=== PATIENT | male | born 1930 | race Caucasian/White ===

== ENCOUNTER 2018-11-27 18:44 | Emergency (ER) | payer OTHER ==
--- NOTE | 2018-11-27 18:53 | EDPHY ---
H & P Time Seen by Provider: 11/27/18 18:53 HPI/ROS: CHIEF COMPLAINT: "I feel crappy" HISTORY OF PRESENT ILLNESS: The patient is an 88 y/o male with dementia arriving via EMS with his daughter for evaluation of malaise onset sometime today. His family saw him yesterday and report he was acting at baseline. Per staff members to daughter, he ate breakfast and lunch normally today. This evening he seemed lethargic and said he felt badly so the staff called for transport to the ED. He says he feels "crappy," but denies pain anywhere or any specific complaints. No report of cough, headache, chest pain, abdominal pain, urinary issues, sore throat. Incontinent at baseline. Flu vaccination is up-to- date. No reported trauma. REVIEW OF SYSTEMS: Limited by patient's dementia. Past medical history: 1. Dementia 2. Peripheral neuropathy 3. Hypertension 4. Syncope 5. Chronic SVT 6. BPH 7. Hearing loss 8. GERD 9. 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 Bilateral knee replacements 2. Second toe on the right amputated 3. Pacemaker Family history: Noncontributory Social history: Daughter at bedside. Lives at [facility] living since April 2018. 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 DNR status - comfort care. General Appearance: Alert. Vital signs reviewed. BP 173/117. Eyes: Pupils equal and round, no conjunctival injection, no discharge. Anicteric. ENT, Mouth: TMs clear bilaterally, some cerumen in left auditory canal. Mucous membranes are moist, no oropharyngeal erythema or edema. Neck: No lymphadenopathy, supple. Respiratory: Lungs are clear to auscultation; no wheezes, rales, or rhonchi. Cardiovascular: Regular rate and rhythm; no murmur, rub, or gallop. Gastrointestinal: Abdomen is soft and nontender, no masses or organomegaly. Skin: Warm and dry, no rashes on exposed skin, normal color. Back: Chapped skin around buttocks. Brown stool in depends. Nontender to palpation over the thoracolumbar spine. No CVAT. Extremities: No lower extremity edema, no calf tenderness or swelling. Superficial scratch below right knee. Cracked peeling skin on plantar aspect of right foot. On plantar aspect of left foot there is a tender swallow depression surrounded by mild erythema, not warm. Neurological: Alert and oriented at baseline. Moving all four extremities easily and equally. Psychiatric: Normal affect. Constitutional: Initial Vital Signs Temperature (C) 36.9 C 11/27/18 18:52 Heart Rate 88 11/27/18 18:52 Respiratory Rate 18 11/27/18 18:52 Blood Pressure 173/117 H 11/27/18 18:52 O2 Sat (%) 96 11/27/18 18:52 O2 Delivery Mode Room Air Allergies/Adverse Reactions: Sulfa (Sulfonamide Antibiotics) Allergy (Verified 11/27/18 18:49) Home Medications: Medication Instructions Recorded Aquaphor 11/27/18 Benazepril HCl 11/27/18 Donepezil HCl 11/27/18 Dorzolamide 2% 11/27/18 Finasteride 11/27/18 IPRATROPIUM BROMIDE 11/27/18 Lumigan 0.01% (*) 11/27/18 Metoprolol Succinate 11/27/18 Ranitidine HCl 11/27/18 Tab A Inna 11/27/18 Tamsulosin HCl 11/27/18 Medical Decision Making - Diagnostics Imaging: I viewed and interpreted images myself ED Course/Re-evaluation: This is an 88 y/o male with advanced dementia who presents for evaluation after complaining of feeling "crappy" at his assisted living facility today. He does not appear systemically ill on exam. He has some skin changes to his buttocks and bottom of both feet. Plan for IV, labs, UA, EKG, chest x-ray. The 12 lead EKG was interpreted by myself. AV paced rhythm rate 63. See hard copy and/or "tracemaster" electronic copy for interpretation. Chest x-ray: [facility] Reassessed patient and discussed findings with him and his daughter. Labs including UA are unremarkable. I've found no clear etiology for his report of feeling crappy. No apparent infection (pneumonia,UTI, cellulitis). Single troponin is negative. He has a paced rhythm. ACS unlikely. No evidence of trauma. BP initially elevated at 173/117, but improved at DC (133/88). He does not have any acute complaints during reassessment. Recommend discharge home and follow up with his PCP as needed. Return precautions discussed. - Data Points Laboratory Results: Laboratory Results 11/27/18 19:12 11/27/18 19:12 Point of Care Test Results: Chemistry 11/27/18 19:29 POC Troponin I 0.00 ng/mL ng/mL (0.00-0.08) Departure - Departure Disposition: Home, Routine, Self-Care Clinical Impression: Malaise Condition: Good Instructions: Fatigue (ED) Additional Instructions: Your blood pressure upon arrival in the ED was 173/117. At discharge it was 133/ 88. Please have facility staff check your blood pressure twice daily over the next several days. Bring these measurements to your next doctor's appointment. Follow up with your primary care provider. Return for worsening of condition. Referrals: Chantell Roy MD [[facility] Primary Care Provider] - As per Instructions Report Scribed for: Shabana Ricks Report Scribed by: Savanna Montoya Date of Report: 11/27/18 Time of Report: 19:22 Physician Review and Approval Statement: 11/27/18 18:53 Portions of this note were transcribed by the medical writer. I, Dr. Shabana Ricsk, personally performed the history, physical exam, and medical decision- making; and confirmed the accuracy of the information in the transcribed note.
[2018-11-27] MEDS ORDERED: ACETAMINOPHEN 325 MG TAB ONE (19:42)
[2018-11-27 19:43] LABS: PLATELET COUNT 238 10^3/uL (150-400)
[2018-11-27 20:41] VITALS: BP 133/88
--- NOTE | 2018-11-27 21:00 | CPEKG ---
Test Reason : OPEN Blood Pressure : / mmHG Vent. Rate : 063 BPM Atrial Rate : 062 BPM P-R Int : 200 ms QRS Dur : 088 ms QT Int : 431 ms P-R-T Axes : 073 054 051 degrees QTc Int : 442 ms Atrial-paced complexes Confirmed by Christiana Washington ([id number]) on 11/27/2018 8:59:37 PM Referred By: CHRISTIANA WASHINGTON Confirmed By:Christiana Washington
== END 2018-11-27 21:19 | disposition home or self-care (01) ==
LOC: EDUNIT#
DX: R53.81 Other malaise (principal); F03.90 Unspecified dementia, unspecified severity, without behavioral disturbance, psychotic disturbance, mood disturbance, and anxiety; I10 Essential (primary) hypertension; G62.9 Polyneuropathy, unspecified; N40.0 Benign prostatic hyperplasia without lower urinary tract symptoms; K21.9 Gastro-esophageal reflux disease without esophagitis; Z95.0 Presence of cardiac pacemaker
CPT/HCPCS: 84484-ER

== ENCOUNTER 2018-12-16 04:13 | Emergency (ER) | payer OTHER ==
[2018-12-16 04:41] LABS: PLATELET COUNT 236 10^3/uL (150-400)
--- NOTE | 2018-12-16 05:09 | EDPHY ---
H & P Stated Complaint: found on floor by nursing staff Time Seen by Provider: 12/16/18 04:26 HPI/ROS: Chief Complaint: Fall HPI: 88-year-old male resident of [facility] was found on the floor by staff. Patient states that he lost his balance while going to the bathroom. He was complaining of some general malaise and weakness enough to be brought to the hospital. He does have a DNR and the [facility] form indicating comfort measures only. They contacted family and they authorized his transport. He was recently diagnosed with a gastroenteritis but has since recovered. No headache. No nausea or vomiting. He did not hit his head. No loss of consciousness. He is currently without complaints. ROS: 10 systems were reviewed and were negative except those elements noted in the HPI.\ Social History: No smoking, no alcohol, no recreational drug use Family History: non-contributory Physical Exam: Gen: Awake, Alert, No Distress HEENT: Nose: no rhinorrhea Eyes: PERRLA, EOMI Mouth: Moist mucosa Neck: Supple, no JVD Chest: nontender, lungs clear to auscultation Heart: S1, S2 normal, no murmur Abd: Soft, non-tender, no guarding Back: no CVA tenderness, no midline tenderness Ext: no edema, non-tender Skin: no rash Neuro: CN II-XII intact, Sensation grossly intact, Strength 5/5 in bilateral upper and lower extremities - Personal History Current Tetanus/Diphtheria Vaccine: Yes Current Tetanus Diphtheria and Acellular Pertussis (TDAP): Yes - Medical/Surgical History Hx Asthma: No Hx Chronic Respiratory Disease: No Hx Diabetes: No Hx Cardiac Disease: No Hx Renal Disease: No Hx Cirrhosis: No Hx Alcoholism: No Hx HIV/AIDS: No Hx Splenectomy or Spleen Trauma: No Other PMH: pe/dementia htn svt, bilat knee replacements - Social History Smoking Status: Former smoker Constitutional: Initial Vital Signs Temperature (C) 36.8 C 12/16/18 04:10 Heart Rate 82 12/16/18 04:10 Respiratory Rate 16 12/16/18 04:10 Blood Pressure 169/99 H 12/16/18 04:10 O2 Sat (%) 96 12/16/18 04:10 O2 Delivery Mode Room Air Allergies/Adverse Reactions: Sulfa (Sulfonamide Antibiotics) Allergy (Verified 12/16/18 04:24) Home Medications: Medication Instructions Recorded Aquaphor 11/27/18 Benazepril HCl 11/27/18 Donepezil HCl 11/27/18 Dorzolamide 2% 11/27/18 Finasteride 11/27/18 IPRATROPIUM BROMIDE 11/27/18 Lumigan 0.01% (*) 11/27/18 Metoprolol Succinate 11/27/18 Ranitidine HCl 11/27/18 Tab A Inna 11/27/18 Tamsulosin HCl 11/27/18 Medical Decision Making ED Course/Re-evaluation: 88-year-old male status post fall in a detention. He is awake alert and oriented. There is no trauma. Laboratory evaluations including CBC, chemistry and urinalysis are negative. He is mildly hypertensive here. He is otherwise at his baseline. Family are happy with the plan to take him home. No evidence of acute neurologic, metabolic or infectious process at this time. - Data Points Laboratory Results: Laboratory Results 12/16/18 04:20 12/16/18 04:20 12/16/18 12/16/18 12/16/18 04:33 04:20 04:20 WBC 6.01 10^3/uL 10^3/uL (3.80-9.50) RBC 4.38 10^6/uL L 10^6/uL (4.40-6.38) Hgb 14.7 g/dL g/dL (13.7-17.5) Hct 42.1 % % (40.0-51.0) MCV 96.1 fL fL (81.5-99.8) MCH 33.6 pg pg (27.9-34.1) MCHC 34.9 g/dL g/dL (32.4-36.7) RDW 12.3 % % (11.5-15.2) Plt Count 236 10^3/uL 10^3/uL (150-400) MPV 9.9 fL fL (8.7-11.7) Neut % (Auto) 64.2 % % (39.3-74.2) Lymph % (Auto) 17.3 % % (15.0-45.0) [place] % (Auto) 10.5 % % (4.5-13.0) Eos % (Auto) 6.0 % % (0.6-7.6) Baso % (Auto) 1.5 % % (0.3-1.7) Nucleat RBC Rel Count 0.0 % % (0.0-0.2) Absolute Neuts (auto) 3.86 10^3/uL 10^3/uL (1.70-6.50) Absolute Lymphs (auto) 1.04 10^3/uL 10^3/uL (1.00-3.00) Absolute Monos (auto) 0.63 10^3/uL 10^3/uL (0.30-0.80) Absolute Eos (auto) 0.36 10^3/uL 10^3/uL (0.03-0.40) Absolute Basos (auto) 0.09 10^3/uL 10^3/uL (0.02-0.10) Absolute Nucleated RBC 0.00 10^3/uL 10^3/uL (0-0.01) Immature Gran % 0.5 % % (0.0-1.1) Immature Gran # 0.03 10^3/uL 10^3/uL (0.00-0.10) Sodium 134 mEq/L L mEq/L (135-145) Potassium 4.6 mEq/L mEq/L (3.5-5.2) Chloride 102 mEq/L mEq/L (97-110) Carbon Dioxide 24 mEq/l mEq/l (22-31) Anion Gap 8 mEq/L mEq/L (6-14) BUN 23 mg/dL mg/dL (7-23) Creatinine 1.2 mg/dL mg/dL (0.7-1.3) Estimated GFR 57 Glucose 83 mg/dL mg/dL (70-100) Calcium 9.4 mg/dL mg/dL (8.5-10.4) Urine Color PALE YELLOW Urine Appearance CLEAR Urine pH 7.0 (5.0-7.5) Ur Specific [place] 1.006 (1.002-1.030) Urine Protein NEGATIVE (NEGATIVE) Urine Ketones NEGATIVE (NEGATIVE) Urine Blood NEGATIVE (NEGATIVE) Urine Nitrate NEGATIVE (NEGATIVE) Urine Bilirubin NEGATIVE (NEGATIVE) Urine Urobilinogen NEGATIVE EU EU (0.2-1.0) Ur Leukocyte Esterase NEGATIVE (NEGATIVE) Urine Glucose NEGATIVE (NEGATIVE) Departure - Departure Disposition: Home, Routine, Self-Care Clinical Impression: Fall Condition: Good Instructions: Fall Prevention for Older Adults (ED) Additional Instructions: Follow up with primary care physician in 2-3 days for any concerns. Referrals: Patient,NotPresent [Primary Care Provider] - As per Instructions
[2018-12-16 05:57] VITALS: BP 135/82
== END 2018-12-16 05:45 | disposition home or self-care (01) ==
LOC: EDUNIT#
DX: R53.1 Weakness (principal); R53.81 Other malaise; I10 Essential (primary) hypertension; W19.XXXA Unspecified fall, initial encounter; Y92.129 Unspecified place in nursing home as the place of occurrence of the external cause; Y99.9 Unspecified external cause status; Y93.9 Activity, unspecified